=== PATIENT | female | born 1980 | race Asian ===

== ENCOUNTER → 2018-11-18 | Outpatient (CLI) | payer OTHER ==
[~2018-11-18] MED LIST: IMODIUM A-D2 MG PO; NEXIUM40 MG/PACK; PEPCID40 MG PO; VERTIN-3232 MG; ZOFRAN4 MG PO
== END | disposition home or self-care (01) ==
LOC: RAD 501 09:34
DX: R07.89 Other chest pain (principal); Z00.00 Encounter for general adult medical examination without abnormal findings